=== PATIENT | female | born 1970 | race African-American/Black ===

== ENCOUNTER 2023-12-10 02:40 | Emergency (ER) | payer OTHER ==
[2023-12-10 02:57] VITALS: BP 128/80; PULSE 75; RESP 18; TEMP 98.4; BMI 32.1
== END 2023-12-10 03:51 | disposition home or self-care (01) ==
LOC: JER 02:40
DX: E16.2 Hypoglycemia, unspecified (principal); R19.7 Diarrhea, unspecified
CPT/HCPCS: 82962; 99283-25

== ENCOUNTER 2024-08-28 21:57 | Emergency (ER) | payer OTHER ==
[2024-08-28 22:14] VITALS: BP 151/82; PULSE 85; RESP 17; TEMP 98.2; BMI 30.4
== END 2024-08-28 23:57 | disposition home or self-care (01) ==
LOC: JER 21:57
DX: R09.89 Other specified symptoms and signs involving the circulatory and respiratory systems (principal)
CPT/HCPCS: 82962; 99283-25

== ENCOUNTER 2024-10-12 15:34 | Emergency (ER) | payer OTHER ==
[2024-10-12 15:38] VITALS: TEMP 98.3; BMI 31.4
[2024-10-12 18:05] LABS: BASO % 0.6 % (0-2.0); HEMATOCRIT 41.3 % (32.4-45.2); HEMOGLOBIN 13.8 GM/dL (10.7-15.3); LYMPH % 30.8 % (8-40); MCH 27.3 pg (25.7-33.7); MCHC 33.3 g/dl (32.0-36.0); MEAN CELL VOLUME 81.9 fl (80-96); MONO % 4.8 % (3.8-10.2); NEUT % 61.8 % (42.8-82.8); PLATELET COUNT 227 10^3/uL (134-434); RBC 5.05 M/mm3 (3.60-5.2); RDW 14.6 % (11.6-15.6); WHITE BLOOD COUNT 8.4 K/mm3 (4.0-10.0)
[2024-10-12 18:29] LABS: ACTIVATED PTT 34.9 SECONDS (25.2-36.5); INR 0.93 (0.83-1.09); PROTHROMBIN TIME (PATIENT) 10.5 SEC (9.7-13.0)
[2024-10-12 18:40] LABS: CALCIUM 10.4 mg/dL (8.5-10.1)
[2024-10-12 18:41] LABS: ALBUMIN 4.6 g/dl (3.4-5.0)
[2024-10-12 18:45] LABS: BILIRUBIN,TOTAL 0.3 mg/dL (0.2-1); TOT PROT 8.3 g/dl (6.4-8.2)
[2024-10-12] MEDS ORDERED: ALPRAZolam 1 MG TABLET ONE (19:19)
[2024-10-12] MEDS: ALPRAZolam 2 MG TABLET PO ONE (19:23)
[2024-10-12 21:23] VITALS: BP 106/58; PULSE 79; RESP 20
== END 2024-10-12 21:36 | disposition home or self-care (01) ==
LOC: JER 15:34
DX: R07.89 Other chest pain (principal); M54.6 Pain in thoracic spine
CPT/HCPCS: 36415; 71275-TC; 80053; 85025; 85610; 85730; 99285-25; Q9967

== ENCOUNTER 2025-01-10 21:50 | Emergency (ER) | payer OTHER ==
[2025-01-10 22:29] VITALS: BP 137/99; PULSE 90; RESP 18; TEMP 98.1; BMI 30.7
[2025-01-11] MEDS: SODIUM CHLORIDE 1,000 ML IV STA (00:18)
[2025-01-11 00:20] LABS: ABSOLUTE IMMATURE GRANULOCYTES 0.03 x10^3/uL (0.0-0.031); BASOPHILS # 0.04 x10^3/uL (0.01-0.08); EOSINOPHIL % 1.7 % (0.7-5.8); EOSINOPHILS # 0.17 x10^3/uL (0.04-0.36); HEMATOCRIT 40.2 % (34.1-44.9); MCHC 32.3 g/dl (32.2-35.5); MEAN CELL VOLUME 82.4 fl (79.4-94.8); MEAN PLT VOLUME 11.9 fl (9.4-12.3); MONOCYTE # 0.63 x10^3/uL (0.24-0.86); MONOCYTE % 6.3 % (4.7-12.5); PLATELET COUNT 271 x10^3/uL (182-369); RDW 13.4 % (12.3-16.6)
[2025-01-11 01:00] LABS: POTASSIUM 3.5 mmol/L (3.5-5.1)
[2025-01-11 01:02] LABS: CALCIUM 9.8 mg/dL (8.5-10.1)
[2025-01-11 01:03] LABS: ALBUMIN 4.3 g/dl (3.4-5.0)
[2025-01-11 01:04] LABS: BLOOD UREA NITROGEN 14.2 mg/dL (7-18)
[2025-01-11 01:07] LABS: BILIRUBIN,TOTAL 0.3 mg/dL (0.2-1); TOT PROT 7.7 g/dl (6.4-8.2)
[2025-01-11 02:42] LABS: PH,URINE 6.5 (5.0-8.0); URINE APPEARANCE CLEAR; URINE BILIRUBIN NEGATIVE (NEGATIVE); URINE COLOR YELLOW; URINE GLUCOSE (UA) NEGATIVE (NEGATIVE); URINE KETONE NEGATIVE (NEGATIVE); URINE LEUK ESTERASE NEGATIVE (NEGATIVE); URINE NITRITE NEGATIVE (NEGATIVE); URINE PROTEIN NEGATIVE (NEGATIVE); URINE UROBILINOGEN 0.2 mg/dL (0.2-1.0)
== END 2025-01-11 06:57 | disposition home or self-care (01) ==
LOC: JER 21:50
PROC: 3E0337Z Introduction of Electrolytic and Water Balance Substance into Peripheral Vein, Percutaneous Approach (ICD-10-PCS; principal; 2025-01-10)
DX: F41.9 Anxiety disorder, unspecified (principal); R63.0 Anorexia; R68.83 Chills (without fever); L74.512 Primary focal hyperhidrosis, palms; R30.9 Painful micturition, unspecified; R39.198 Other difficulties with micturition
CPT/HCPCS: 36415; 80053; 81003; 82962; 84443; 85025; 87086; 96360; 99284-25

== ENCOUNTER 2025-04-20 19:53 | Emergency (ER) | payer OTHER ==
[2025-04-20 20:30] VITALS: BP 141/81; PULSE 74; RESP 20; TEMP 98.2; BMI 30.7
[2025-04-20 22:41] LABS: ABSOLUTE IMMATURE GRANULOCYTES 0.04 x10^3/uL (0.0-0.031); BASOPHILS # 0.04 x10^3/uL (0.01-0.08); EOSINOPHIL % 2.5 % (0.7-5.8); EOSINOPHILS # 0.22 x10^3/uL (0.04-0.36); MCHC 32.4 g/dl (32.2-35.5); MEAN CELL VOLUME 84.6 fl (79.4-94.8); MEAN PLT VOLUME 12.7 fl (9.4-12.3); MONOCYTE # 0.53 x10^3/uL (0.24-0.86); MONOCYTE % 6.1 % (4.7-12.5); RDW 13.1 % (12.3-16.6)
[2025-04-20 23:06] LABS: CO2 25.0 mmol/L (21-32)
[2025-04-20 23:07] LABS: GLUCOSE,RANDOM 119.0 mg/dL (74-106)
[2025-04-20 23:09] LABS: SGPT/ALT 29.0 U/L (13-61)
[2025-04-20 23:11] LABS: CREATININE 1.0 mg/dL (0.55-1.3); SGOT/AST 21.0 U/L (15-37); TOT PROT 6.9 g/dl (6.4-8.2)
[2025-04-20 23:12] LABS: ALK PHOS 57.0 U/L (45-117)
[2025-04-20 23:16] LABS: URINE APPEARANCE CLEAR; URINE BILIRUBIN NEGATIVE (NEGATIVE); URINE COLOR YELLOW; URINE GLUCOSE (UA) NEGATIVE (NEGATIVE); URINE KETONE NEGATIVE (NEGATIVE); URINE LEUK ESTERASE NEGATIVE (NEGATIVE); URINE NITRITE NEGATIVE (NEGATIVE); URINE PROTEIN NEGATIVE (NEGATIVE); URINE UROBILINOGEN 0.2 mg/dL (0.2-1.0)
== END 2025-04-20 23:55 | disposition home or self-care (01) ==
LOC: JER 19:53
DX: E11.649 Type 2 diabetes mellitus with hypoglycemia without coma (principal)
CPT/HCPCS: 36415; 80053; 81003; 82962; 84439; 84443; 85025; 87086; 99283-25